=== PATIENT | male | born 1960 | race Caucasian/White ===

== ENCOUNTER 2018-01-29 17:11 | Emergency (ER) | payer OTHER ==
[2018-01-29] MEDS ORDERED: Ondansetron HCl/PF 4 MG/2 ML Vial ONE (18:04)
[2018-01-29] MEDS ORDERED: Morphine 4 MG/ML VIAL ONE (18:04)
[2018-01-29 18:23] LABS: Bilirubin Negative (Negative); Blood, Urine Small (Negative); Clarity Hazy (Clear); Glucose, Urine (Dipstick) Negative (Negative); Leukocyte Negative (Negative); Nitrite Negative (Negative); Protein, Urine (Dipstick) 100 mg/dL (Neg-Trace); Specific Gravity, Urine 1.025 (1.005-1.030); Urobilinogen 0.2 mg/dL (0.2-1.0)
[2018-01-29 18:24] LABS: #Basophils 0.1 thou/uL (0.0-0.2); #Eosinphils 0.3 thou/uL (0.0-0.7); #Monocytes 0.7 thou/uL (0.11-0.59); #Neutrophils 4.9 thou/uL (1.40-6.50); %Basophils 1.8 % (0.0-1.0); %Eosinophils 3.2 % (0.0-10.0); %Lymphocytes 25.6 % (21.0-51.0); %Monocytes 8.5 % (0.0-10.0); Hemoglobin 16.3 g/dL (14.0-18.0); Mean Corpuscular Hemoglobin 32.6 pg (27.0-31.0); Mean Corpuscular Volume 95.7 fL (78.0-98.0); Mean Platelet Volume 8.5 fL (7.4-10.4); Platelet Count 146 thou/uL (130-400); RBC Distribution Width 12.7 % (11.5-14.5); Red Blood Cell (RBC) Count 4.99 mill/uL (4.70-6.10)
[2018-01-29 18:31] LABS: Bacteria/HPF 1+ HPF (None Seen); Squamous Epithelial 0-3 HPF (0-3); WBC/HPF None Seen HPF (0-3)
[2018-01-29 18:39] LABS: ALT (SGPT) 68 U/L (8-55); AST (SGOT) 80 U/L (5-34); Albumin 4.4 g/dL (3.5-5.0); Alkaline Phosphatase 86 U/L (40-150); Anion Gap 14 mmol/L (10-20); BUN (Urea Nitrogen) 23 mg/dL (8.4-25.7); Bilirubin, Total 0.7 mg/dL (0.2-1.2); Calc. Creatinine Clearance 0 mL/min (70-130); Calcium 11.3 mg/dL (7.8-10.44); Carbon Dioxide 19 mmol/L (22-29); Chloride 107 mmol/L (98-107); Estimated GFR-MDRD 58; Glucose 88 mg/dL (70-105); Lipase 142 U/L (8-78); Potassium 3.3 mmol/L (3.5-5.1); Protein, Total 8.4 g/dL (6.0-8.3); Sodium 137 mmol/L (136-145)
[2018-01-29] MEDS ORDERED: Lorazepam 2 MG/ML VIAL ONE (18:39)
[2018-01-29 18:43] LABS: CKMB 1.3 ng/mL (0-6.6); Troponin I Less than 0.010 ng/mL (< 0.028)
[2018-01-29] MEDS ORDERED: Famotidine/PF 20 mg/2ml Vial ONE (20:41)
--- NOTE | 2018-01-29 21:08 | CT ---
ABDOMEN CT WITH CONTRAST PELVIC CT WITH CONTRAST 01/29/18 HISTORY: Right upper quadrant pain . COMPARISON: None. TECHNIQUE: Abdomen and pelvic CT are performed with IV and oral contrast. Coronal reformatted images are submitt ed for interpretation. FINDINGS: ABDOMEN CT: Lung bases are clear. Normal heart size. No pericardial fluid. The descending thoracic aorta and abdo cheryl aorta have a normal caliber. No periaortic fat stranding. Gallbladder is unremarkable. Patent p ortal vein is patent. Hypoattenuation of the liver due to hepatic steatosis. Spleen, pancreas, and adrenal glands are unre markable. No gastrohepatic, retrocrural or periportal lymphadenopathy. No mesenteric mass, lymphadenopathy, free air or free fluid. Hypodensities in the left and right kidney are too small to characterize. There may be a septated cys t in the left kidney measuring 1.5 cm in craniocaudal dimension. Questionable enhancing septation in the upper pole of the right kidney measuring 1 cm in craniocaudal dimension. Additional hypodensities are noted. Bilaterally, no obstructive uropathy. Gastric mucosa, duodenum and multiple normal caliber small bowel loops. Ileocecal junction is normal. Normal caliber appendix. Scattered fecal material in a nondistended, nondilated colon. PELVIC CT: No mass, lymphadenopathy, free air or free fluid. No lytic or blastic lesions in the osseous structures. IMPRESSION: 1. Hypodense lesions in the left and right kidney as detailed above. Nonemergent abdomen MRI can be performed for better characterization. 2. Hepatic steatosis. 3. No evidence of acute abnormality in the abdomen or pelvis. 4. Normal caliber appendix. POS: [facility]
[2018-01-29] MEDS ORDERED: Potassium Chloride 20 MEQ TAB ONE (21:54)
[2018-01-29] MEDS ORDERED: Magnesium Citrate 300 ML BOT ONE (21:54)
== END 2018-01-29 22:01 | disposition home or self-care (01) ==
LOC: SCSER 17:11
DX: K76.0 Fatty (change of) liver, not elsewhere classified (principal); N28.1 Cyst of kidney, acquired; I10 Essential (primary) hypertension; E87.6 Hypokalemia; R74.0 Nonspecific elevation of levels of transaminase and lactic acid dehydrogenase [LDH]; K21.9 Gastro-esophageal reflux disease without esophagitis; E78.5 Hyperlipidemia, unspecified; F17.210 Nicotine dependence, cigarettes, uncomplicated; Z71.6 Tobacco abuse counseling
CPT/HCPCS: 74177; 76705; 80053; 81003; 81015; 82553; 83605; 83690; 84484; 85025; 93005; 96361; 96374; 96375; 99406; J2060; J2270; J2405; S0028

== ENCOUNTER 2018-03-05 09:32 | Outpatient (CLI) | payer OTHER ==
--- NOTE | 2018-03-05 12:17 | MRI ---
MRI RIGHT SHOULDER WITHOUT CONTRAST: HISTORY: Shoulder pain. M75.101, tear of the rotator cuff. COMPARISON: None. FINDINGS: BICEPS TENDON: There is interstitial split tearing of the extraarticular and intraarticular biceps tendon. There is perching of the biceps tendon upon the lesser tuberosity with a subcortical cyst. There is a tear o f the superior glenohumeral ligament of the biceps darling, as well as an interstitial split tear of t he craniad fibers of the subscapularis. There is some subluxation of the biceps tendon to the torn s ubscapularis tendon fibers. LABRUM: There is a tear of the superior labrum extending to the posterior superior labrum. ROTATOR CUFF: There is a full-thickness leading edge tear of the anterior 1.5 cm supraspinatus tendon from the foot print with a 6 mm gap. There is moderate tendinosis of the remainder of the tendon. There are inter stitial delamination-type tears of the infraspinatus tendon. BONES: Type I acromion. No acute fracture. Mild degenerative change of the acromioclavicular joint as expe cted for age. MUSCLES: Muscle bulk is normal. SOFT TISSUES: Moderate subacromial subdeltoid bursal effusion. IMPRESSION: 1. Extensive interstitial edema and delamination-type tear of the extraarticular and interarticular biceps tendon. There is perching of the biceps tendon upon the lesser tuberosity as well as displace ment through a tear of the craniad fibers of the subscapularis. There is a tear of the superior melissa ohumeral ligament portion of the biceps darling. 2. Tear of the superior labrum extending to the posterior superior labrum. 3. Full-thickness, near full-width supraspinatus tendon tear extending from the free edge for a salazar sverse width of 1.5 cm. This is from the footprint with a 6 mm gap. Torn fibers are moderately tend inotic. 4. Subcortical cysts of the lesser tuberosity of the humerus from chronic subluxation of the biceps tendon. POS: [facility]
== END 2018-03-05 09:33 | disposition home or self-care (01) ==
LOC: TBSIIMAG 09:32
PROVIDERS: ATTEND Orthopaedic Surgery
DX: M75.121 Complete rotator cuff tear or rupture of right shoulder, not specified as traumatic (principal); R60.0 Localized edema; S43.401A Unspecified sprain of right shoulder joint, initial encounter; M25.811 Other specified joint disorders, right shoulder; M24.411 Recurrent dislocation, right shoulder

== ENCOUNTER 2018-03-10 15:11 | Outpatient (CLI) | payer OTHER ==
[2018-03-10 15:58] LABS: #Basophils 0.1 thou/uL (0.0-0.2); #Eosinphils 0.2 thou/uL (0.0-0.7); #Lymphocytes 1.6 thou/uL (1.20-3.40); #Monocytes 0.6 thou/uL (0.11-0.59); #Neutrophils 4.9 thou/uL (1.40-6.50); %Basophils 0.8 % (0.0-1.0); %Eosinophils 2.8 % (0.0-10.0); %Lymphocytes 21.4 % (21.0-51.0); %Monocytes 8.6 % (0.0-10.0); %Neutrophils 66.3 % (42.0-75.0); Hemoglobin 15.3 g/dL (14.0-18.0); Mean Corpuscular HGB CONC 33.6 g/dL (32.0-36.0); Mean Corpuscular Hemoglobin 32.7 pg (27.0-31.0); Mean Corpuscular Volume 97.5 fL (78.0-98.0); Mean Platelet Volume 7.8 fL (7.4-10.4); Platelet Count 237 thou/uL (130-400); RBC Distribution Width 12.8 % (11.5-14.5); Red Blood Cell (RBC) Count 4.69 mill/uL (4.70-6.10); White Blood Cell (WBC) Count 7.3 thou/uL (4.8-10.8)
[2018-03-10 16:18] LABS: Anion Gap 12 mmol/L (10-20); BUN (Urea Nitrogen) 17 mg/dL (8.4-25.7); Calc. Creatinine Clearance 0 mL/min (70-130); Calcium 9.9 mg/dL (7.8-10.44); Carbon Dioxide 26 mmol/L (22-29); Chloride 103 mmol/L (98-107); Estimated GFR-MDRD 59; Glucose 97 mg/dL (70-105); Potassium 3.7 mmol/L (3.5-5.1); Sodium 137 mmol/L (136-145)
--- NOTE | 2018-03-14 10:25 | EKG ---
Test Reason : Blood Pressure : / mmHG Vent. Rate : 080 BPM Atrial Rate : 080 BPM P-R Int : 124 ms QRS Dur : 082 ms QT Int : 366 ms P-R-T Axes : 049 082 050 degrees QTc Int : 422 ms Normal sinus rhythm Nonspecific ST abnormality Abnormal ECG When compared with ECG of 29-JAN-2018 17:54, Questionable change in QRS axis Confirmed by DR. Ivonne ARIAS ([id number]) on 03/14/2018 10:25:39 AM Referred By: LEONORA Confirmed By:DR. Ivonne ARIAS
== END 2018-03-10 15:12 | disposition home or self-care (01) ==
LOC: LABBT 15:11
PROVIDERS: ATTEND Orthopaedic Surgery
DX: Z01.818 Encounter for other preprocedural examination (principal); M75.101 Unspecified rotator cuff tear or rupture of right shoulder, not specified as traumatic
CPT/HCPCS: 80048; 85025; 93005; 93010

== ENCOUNTER 2018-03-13 09:22 | Day surgery (SDC) | payer OTHER ==
[2018-03-10 15:22] VITALS: BMI 26.6
[2018-03-13] MEDS ORDERED: CEFAZOLIN 2 GM/50 ML BAG ONE (11:47)
[2018-03-13] MEDS ORDERED: Midazolam HCl 2 mg/2 ml Vial ONE (11:51)
[2018-03-13] MEDS ORDERED: Fentanyl 100 MCG/2 ML VIAL ONE ×2 (11:51→12:49)
[2018-03-13] MEDS ORDERED: Ropivacaine 0.5% HCl/PF (150 MG/30 ML VIAL) ONE (12:29)
[2018-03-13] MEDS ORDERED: Ropivacaine 0.2% HCl/PF (40 MG/20 ML VIAL) ONE (12:29)
[2018-03-13] MEDS ORDERED: Promethazine HCl 25 MG/ML VIAL IM PRN (12:37)
[2018-03-13] MEDS ORDERED: Zolpidem Tartrate 5 MG TAB PO PRN (12:37)
[2018-03-13] MEDS ORDERED: Ropivacaine 0.2% 550 ML 550 ML NERVE BLCK SCH (12:37)
[2018-03-13] MEDS ORDERED: HYDROcodone/Acetaminophen 10/325 mg Tablet PO PRN ×2 (12:37)
[2018-03-13] MEDS ORDERED: traMADol HCl 50 MG TAB PO PRN ×2 (12:37)
[2018-03-13] MEDS ORDERED: Fentanyl 100 MCG/2 ML VIAL IV PRN (12:37)
[2018-03-13] MEDS ORDERED: Ondansetron PF 4 MG/2 ML Vial IVP PRN (12:37)
[2018-03-13] MEDS ORDERED: PROPOFOL 200 MG/20 ML VIAL ONE (13:34)
[2018-03-13] MEDS ORDERED: PHENYLEPHRINE-NS 100 MCG/ML 10 ML SYRINGE ONE (13:34)
[2018-03-13] MEDS ORDERED: Ondansetron PF 4 MG/2 ML Vial ONE (13:34)
[2018-03-13] MEDS ORDERED: Glycopyrrolate 0.2 MG/ML 5 ML SYRINGE ONE (13:34)
[2018-03-13] MEDS ORDERED: Dexamethasone 20 MG/5 ML VIAL ONE (13:34)
--- NOTE | 2018-03-13 15:09 | OP ---
DATE OF PROCEDURE: 03/13/2018 PREOPERATIVE DIAGNOSES: Rotator cuff tear, biceps tendonitis, right shoulder. POSTOPERATIVE DIAGNOSES: Intact pristine looking biceps tendon, but full-thickness rotator cuff tear . PROCEDURES: Arthroscopic subacromial decompression and rotator cuff repair. SURGEON: Chan Rader M.D. ANESTHESIA: General. BLOOD LOSS: Minimal. SPECIMEN: None. DRAINS: None. COMPLICATIONS: None. PROCEDURE IN DETAIL: The patient was taken to the operating room where general anesthesia was induce d. The patient was placed in the left lateral decubitus position. Right arm was placed in traction, prepped and draped. Scope was placed in the glenohumeral joint. Glenohumeral joint showed a very h ealthy appearing biceps tendon, some labral fraying consistent with age, full thickness rotator cuff and no significant osteoarthritis. Scope was placed in the subacromial bursa. There was a great brendon l of bursitis. I performed a subacromial decompression and bursectomy. CA ligament was taken down. I then freshened up the greater tuberosity and freshened up the rotator cuff tear with a shaver. I placed a single TwinFix suture anchor through the greater tuberosity through the freshened bone. Sut ures were passed through the rotator cuff and tied with a good watertight repair and then reinforced with a double row using self-punching SwiveLock. Shoulder was then drained. Portals were closed wit h nylon suture. Sterile dressings applied. There were no complications.
== END 2018-03-13 17:00 | disposition home or self-care (01) ==
LOC: SDC 09:22
PROVIDERS: ATTEND Orthopaedic Surgery
PROC: 0RNJ4ZZ Release Right Shoulder Joint, Percutaneous Endoscopic Approach (ICD-10-PCS; principal; 2018-03-13)
PROC: 0LQ14ZZ Repair Right Shoulder Tendon, Percutaneous Endoscopic Approach (ICD-10-PCS; principal; 2018-03-13)
DX: M75.121 Complete rotator cuff tear or rupture of right shoulder, not specified as traumatic (principal); M75.21 Bicipital tendinitis, right shoulder; I10 Essential (primary) hypertension; E78.5 Hyperlipidemia, unspecified; Z79.899 Other long term (current) drug therapy
CPT/HCPCS: A4306; C1713; G8984-GP-CK; G8985-GP-CK; G8986-GP-CK; J1100; J2250; J2405; J2704; J2795; J3010

== ENCOUNTER 2019-04-14 09:32 | Outpatient (CLI) | payer OTHER ==
--- NOTE | 2019-04-14 10:22 | RAD ---
XR Lumbar Spine 2 Or 3 View HISTORY: Low back pain, right-sided sciatica, osteoarthritis FINDINGS: Degenerative changes are present. No fracture, subluxation or bony destruction is seen. IMPRESSION: lumbar spondylosis
== END 2019-04-14 09:33 | disposition home or self-care (01) ==
LOC: BICRAD 09:32
PROVIDERS: ATTEND Family Medicine
DX: M47.817 Spondylosis without myelopathy or radiculopathy, lumbosacral region (principal); N17.9 Acute kidney failure, unspecified; A48.3 Toxic shock syndrome; M32.14 Glomerular disease in systemic lupus erythematosus; M35.00 Sjogren syndrome, unspecified; D64.9 Anemia, unspecified; N20.0 Calculus of kidney; A02.1 Salmonella sepsis; N28.1 Cyst of kidney, acquired; I11.9 Hypertensive heart disease without heart failure; E78.5 Hyperlipidemia, unspecified; K21.9 Gastro-esophageal reflux disease without esophagitis; G62.9 Polyneuropathy, unspecified; I25.10 Atherosclerotic heart disease of native coronary artery without angina pectoris; M47.816 Spondylosis without myelopathy or radiculopathy, lumbar region
CPT/HCPCS: 72100

== ENCOUNTER 2019-05-11 15:42 | Outpatient (CLI) | payer OTHER ==
--- NOTE | 2019-05-11 16:33 | MRI ---
MRI lumbar spine noncontrast: HISTORY: Right-sided low back pain. Left-sided sciatica. Pain radiates down the right leg and hip x2.5 months. COMPARISON: None. FINDINGS: Appropriate T1 marrow signal intensity of the lumbar vertebra. Mild heterogeneity due to senescent ch italo. Lumbar spine vertebral body height is maintained. No fracture. No significant STIR hyperintensity to suggest vertebral body edema or ligamentous injury. Appropriate signal intensity visualized paraspinal muscles. T2 hyperintensities in the left or right renal cortex, compatible with cortical cysts. Otherwise, unremarkable signal intensity visualized solid organs Conus medullaris terminates at the T12-L1 disc space T12-L1:Adequate disc hydration. No significant central canal stenosis or significant neural foraminal narrowing L1-L2:Adequate disc hydration. No significant canal stenosis or significant neural foraminal narrowin g L2-L3:Minimal disc desiccation without significant loss of disc space height. Broad-based disc bulge minimally abuts the thecal sac. No significant central canal stenosis. Bilaterally the neural foramina are patent L3-L4:Minimal desiccation without significant loss of disc space height. Broad-based disc bulge minim ally contacts the ventral thecal sac. No significant central canal stenosis. Bilaterally, neural foramina pain L4-L5:Adequate disc hydration. No significant posterior disc of body. No significant central canal st enosis. Right neural foramen is patent. Minimal left foraminal narrowing. L5-S1:Mild loss of disc space height. Broad-based disc bulge does not cause any significant mass effe ct upon the thecal sac. Narrowing of the thecal sac is noted, due to epidural lipomatosis. Mild to moderate right neural foraminal narrowing and moderate left foraminal narrowing predominantly due to facet hypertrophy. IMPRESSION: 1. Narrowing of the thecal sac at L5-S1 essentially due to epidural lipomatosis. 2. Mild to moderate right neural foraminal narrowing and moderate left foraminal narrowing at L5-S1.. Transcribed Date/Time: 05/11/2019 4:52 PM
== END 2019-05-11 15:43 | disposition home or self-care (01) ==
LOC: SCSMRI 15:42
PROVIDERS: ATTEND Family Medicine
DX: M54.42 Lumbago with sciatica, left side (principal); M48.07 Spinal stenosis, lumbosacral region; E88.2 Lipomatosis, not elsewhere classified
CPT/HCPCS: 72148

== ENCOUNTER 2019-09-08 14:42 | Outpatient (CLI) | payer OTHER ==
--- NOTE | 2019-08-18 15:47 | MRI ---
MRI cervical spine noncontrast HISTORY: Neck pain. Radiculopathy. Spinal stenosis. FINDINGS: Vertebral body heights and alignment are maintained. Bone marrow signal is within normal li mits. There is desiccation of all of the intervertebral discs. C2-3: Mild posterior osteophyte/disc complex, greater on the right. Severe stenosis of the right neur al foramen. Central canal and left neural foramen are patent. C3-4: Mild posterior osteophyte/disc complex. Mild stenosis of the left neural foramen. Central canal and right neural foramen are patent. C4-5: Disc space narrowing. Posterior osteophyte/disc complex and circumferential degenerative change s. Moderate stenosis of the central canal. Severe bilateral foraminal stenoses. No abnormal signal within the spinal cord. C5-6: Disc space narrowing. Prominent posterior osteophyte/disc complex. Circumferential degenerative changes. Severe stenosis of the central canal. No abnormal signal within the spinal cord. Moderate right and severe left foraminal stenoses. C6-7: Disc space narrowing. Posterior osteophyte/disc complex and circumferential degenerative change s. Moderate stenosis of the central canal. Severe bilateral foraminal stenoses. C7-T1: Mild osteophytosis. Central canal and neural foramina are patent. IMPRESSION : Prominent multilevel degenerative changes throughout the cervical spine. Central canal stenosis most severe at the C5-6 level. Multilevel severe bilateral foraminal stenoses.
--- NOTE | 2019-08-18 16:03 | MRI ---
MRI OF LUMBAR SPINE 08/18/19 PROVIDED CLINICAL HISTORY: Lumbar radiculopathy. FINDINGS: Comparison 05/11/19. Five lumbar vertebral bodies are again assumed. Lumbar alignment appears unchanged. Vertebral body he ights are maintained. The conus medullaris is normal in signal and terminates at an appropriate level . Bilateral T2 renal hyperintensities are redemonstrated, subcentimeter and statistically reflecting cysts. At L1-2, there is no significant central canal or foraminal narrowing apparent. At L2-3, there is a broad based disc bulge without significant central canal or foraminal narrowing a pparent. At L3-4, there is a broad based disc bulge without significant central canal or foraminal narrowing a pparent. At L4-5, there is a broad based disc bulge and mild bilateral facet arthritis without significant preet tral canal or foraminal narrowing apparent. At L5-S1, there is a broad based disc bulge and bilateral facet arthritis in addition to conspicuity of the epidural fat. There is circumferential attenuation of the thecal sac on the basis of epidural lipomatosis, without further attenuation due to the disc bulge. There is moderate bilateral foraminal narrowing, similar to prior. IMPRESSION: Significant interval change with respect to the prior examination is no apparent. POS: [facility]
--- NOTE | 2019-09-08 16:30 | MRI ---
MRI thoracic spine noncontrast: Attention patel in billing: The patient should not be charged for this examination. DATE: 09/08/2019 HISTORY: 59-year-old male with mid back pain and lower extremity weakness. For 08/18/2019, MRI of the cervical spine and thoracic spine were ordered. At [facility], and MRI of the cervical spine and lumbar spine was performed. The patient should not be charged either a technical fee or professional fee for this thoracic spine MRI. COMPARISON: None FINDINGS: Vertebral body heights are maintained. No bone marrow edema. Somewhat heterogeneous nonspecific patch y marrow signal, probably senescent marrow changes. Multilevel mild-moderate degenerative disc disease throughout almost all levels. Thoracic spinal cord is normal in size and signal. No severe ne ural foraminal stenosis at any level. No major pathology of perivertebral spaces. Conus medullaris terminates at approximately L1. No high-grade central bony spinal canal stenosis at any level. Lead Neurodiagnostic Technologist ior epidural fat pad throughout almost all levels, thicker at some levels than others. This results in mild thecal sac stenosis at some levels. T3-4: Shallow central and bilateral paracentral broad-based disc herniation or disc-osteophyte comple x indents the ventral aspect of the thecal sac and abuts the ventral surface of the spinal cord, with minimal indentation. Tiny central disc-osteophyte complex protrusions at T4-5 and T6-7, without cord indentation. T7-8: Small focal central disc protrusion or focal disc-osteophyte complex slightly indents the ventr al surface of the spinal cord. T8-9: Central and bilateral paracentral small disc protrusion or disc-osteophyte complex slightly min imally indents the ventral surface of the spinal cord. Tiny central disc protrusion or disc-osteophyte complex at T9-10 and T10-11 without cord contact. IMPRESSION: 1. Thoracic spondylosis consisting of multilevel degenerative disc disease, including multilevel smal l disc herniations and/or disc-osteophyte complexes encroaching upon the anterior aspect of the spinal canal, some with cord contact and mild cortical indentations. 2. No high-grade central spinal canal stenosis or high-grade neural foraminal stenosis, at any level in the thoracic spine.
== END 2019-09-08 14:43 | disposition home or self-care (01) ==
LOC: SCSMRI 14:42
PROVIDERS: ATTEND Surgery
DX: M54.16 Radiculopathy, lumbar region (principal); M54.5 Low back pain; R29.898 Other symptoms and signs involving the musculoskeletal system; M47.812 Spondylosis without myelopathy or radiculopathy, cervical region; M48.02 Spinal stenosis, cervical region
CPT/HCPCS: 72141; 72146; 72148

== ENCOUNTER 2019-10-08 06:33 | Outpatient (CLI) | payer OTHER ==
[2019-10-08 11:23] LABS: Hemoglobin 14.3 g/dL (14.0-18.0); Mean Corpuscular HGB CONC 34.2 g/dL (32.0-36.0); Mean Corpuscular Hemoglobin 33.2 pg (27.0-31.0); Mean Corpuscular Volume 97.1 fL (78.0-98.0); Mean Platelet Volume 8.8 fL (7.4-10.4); Platelet Count 200 thou/uL (130-400); RBC Distribution Width 12.5 % (11.5-14.5); Red Blood Cell (RBC) Count 4.32 mill/uL (4.70-6.10); White Blood Cell (WBC) Count 8.7 thou/uL (4.8-10.8)
[2019-10-08 11:48] LABS: Anion Gap 14 mmol/L (10-20); BUN (Urea Nitrogen) 14 mg/dL (8.4-25.7); Calc. Creatinine Clearance 0 mL/min (70-130); Calcium 9.9 mg/dL (7.8-10.44); Carbon Dioxide 23 mmol/L (22-29); Chloride 106 mmol/L (98-107); Estimated GFR-MDRD 33; Glucose 95 mg/dL (70-105); Potassium 3.2 mmol/L (3.5-5.1); Sodium 140 mmol/L (136-145)
[2019-10-08 12:24] LABS: INR-International Normal Ratio 0.9; PTT 27.2 sec (22.9-36.1); Prothrombin Time 12.3 sec (12.0-14.7)
[2019-10-09 12:15] LABS: SARS-CoV-2 MS2 Positive; SARS-CoV-2 N Gene Negative; SARS-CoV-2 S Gene Negative; SARS-CoV-2 orf1ab Negative
--- NOTE | 2019-10-11 11:45 | EKG ---
Test Reason : Blood Pressure : / mmHG Vent. Rate : 068 BPM Atrial Rate : 068 BPM P-R Int : 138 ms QRS Dur : 098 ms QT Int : 384 ms P-R-T Axes : 033 046 039 degrees QTc Int : 408 ms Normal sinus rhythm Nonspecific ST abnormality Abnormal ECG Confirmed by DIAZ FRANKLIN ([id number]) on 10/11/2019 11:45:15 AM Referred By: PARADISE Confirmed By:DIAZ FRANKLIN
== END 2019-10-08 06:34 | disposition home or self-care (01) ==
LOC: LABBT 06:33
PROVIDERS: ATTEND Surgery
DX: Z01.818 Encounter for other preprocedural examination (principal); Z11.59 Encounter for screening for other viral diseases; M48.061 Spinal stenosis, lumbar region without neurogenic claudication; M54.16 Radiculopathy, lumbar region; D17.79 Benign lipomatous neoplasm of other sites
CPT/HCPCS: 80048; 85027; 85610; 85730; 87635; 93005; 93010; U0003

== ENCOUNTER 2019-10-12 05:55 | Day surgery (SDC) | payer OTHER ==
[2019-10-07 11:33] VITALS: BMI 24.1
[2019-10-12] MEDS ORDERED: Thrombin 5000 UNITS/5 ML VIAL ONE (06:26)
[2019-10-12] MEDS ORDERED: Fentanyl 250 MCG/5 ML VIAL ONE (07:26)
[2019-10-12] MEDS ORDERED: SUGAMMADEX SODIUM 200 MG/2 ML VIAL ONE (09:11)
[2019-10-12] MEDS ORDERED: Acetaminophen/Codeine 30-300mg Tablet PO PRN (09:43)
[2019-10-12] MEDS ORDERED: HYDROcodone/Acetaminophen 7.5/325 mg Tablet PO PRN (09:43)
[2019-10-12] MEDS ORDERED: Fleet Enema 133 ML BOT PR PRN (09:43)
[2019-10-12] MEDS ORDERED: Milk Of Magnesia 30 ML UDCUP PO PRN (09:43)
[2019-10-12] MEDS ORDERED: Mag-Al 1200 mg/1200 mg/30 ML UDCUP PO PRN (09:43)
[2019-10-12] MEDS ORDERED: Ondansetron PF 4 MG/2 ML Vial IVP PRN (09:43)
[2019-10-12] MEDS ORDERED: Acetaminophen 325 MG TAB PO PRN (09:43)
[2019-10-12] MEDS ORDERED: Bisacodyl 10 MG SUPP PR PRN (09:43)
[2019-10-12] MEDS ORDERED: tiZANidine HCl 4 MG TAB PO PRN (09:43)
[2019-10-12] MEDS ORDERED: traMADol HCl 50 MG TAB PO PRN (09:46)
[2019-10-12] MEDS ORDERED: HYDROmorphone 2 MG/ML VIAL SLOW IVP PRN (09:47)
[2019-10-12] MEDS ORDERED: Morphine Sulfate 2 MG/ML SYRINGE SLOW IVP PRN (09:47)
[2019-10-12] MEDS ORDERED: PACU-Morphine 4MG/ML VIAL SLOW IVP PRN (09:47)
[2019-10-12] MEDS ORDERED: Ondansetron HCl/PF 4 MG/2 ML Vial IVP PRN (09:47)
[2019-10-12] MEDS ORDERED: Promethazine HCl 25 MG/ML VIAL SLOW IVP PRN (09:47)
[2019-10-12] MEDS ORDERED: Promethazine HCl 25 MG/ML VIAL IM PRN (09:47)
[2019-10-12] MEDS ORDERED: Fentanyl 100 MCG/2 ML VIAL ONE ×3 (10:02→10:46)
[2019-10-12] MEDS ORDERED: Morphine 2 MG/ML SYRINGE ONE ×2 (11:25→12:36)
[2019-10-12] MEDS ORDERED: PROPOFOL 200 MG/20 ML VIAL ONE (11:54)
[2019-10-12] MEDS ORDERED: Rocuronium Bromide 10 MG/ML (10ML VIAL) ONE (11:54)
[2019-10-12] MEDS ORDERED: PHENYLEPHRINE-NS 100 MCG/ML 10 ML SYRINGE ONE (11:54)
[2019-10-12] MEDS ORDERED: Dexamethasone 20 MG/5 ML VIAL ONE (11:54)
[2019-10-12] MEDS ORDERED: Ondansetron PF 4 MG/2 ML Vial ONE (11:54)
[2019-10-12] MEDS ORDERED: Lidocaine 1% PF 5 ML VIAL ONE (11:54)
[2019-10-12] MEDS ORDERED: Metoclopramide HCl 10 MG/2 ML VIAL ONE (11:54)
[2019-10-12] MEDS: Morphine 2 MG/ML SYRINGE SLOW IVP PRN ×2 (15:40→19:51)
[2019-10-12] MEDS: Sodium Chloride 0.9% 1,000 ML IV SCH (15:42)
[2019-10-12] MEDS: CEFAZOLIN 2 GM in Premix Bag 1 BAG IVPB SCH (16:48)
[2019-10-12] MEDS ORDERED: Gabapentin 300 MG CAP PO SCH (21:00)
[2019-10-12] MEDS ORDERED: Non-Formulary Item 1 EACH (Rosuvastatin Calcium [Crestor] 40 MG) PO SCH (21:00)
[2019-10-12] MEDS ORDERED: Rosuvastatin 20 MG TAB PO SCH (21:00)
[2019-10-12] MEDS: Gabapentin 300 MG CAP PO SCH (21:36)
[2019-10-12] MEDS: Metoprolol Tartrate 100 MG TAB PO SCH (21:37)
[2019-10-13] MEDS: CEFAZOLIN 2 GM in Premix Bag 1 BAG IVPB SCH (00:12)
[2019-10-13] MEDS: Morphine 2 MG/ML SYRINGE SLOW IVP PRN ×2 (00:15→09:10)
[2019-10-13] MEDS: Sodium Chloride 0.9% 1,000 ML IV SCH (06:43)
[2019-10-13 08:11] VITALS: BP 115/70; TEMP 98.5
[2019-10-13] MEDS ORDERED: Famotidine 20 MG TAB PO SCH (09:00)
[2019-10-13] MEDS ORDERED: Potassium Chloride 20 MEQ TAB PO SCH (09:00)
[2019-10-13] MEDS ORDERED: Non-Formulary Item 1 EACH (Potassium Chloride [Potassium Chloride] 20 MEQ) PO SCH (09:00)
[2019-10-13] MEDS: Gabapentin 300 MG CAP PO SCH (09:12)
--- NOTE | 2019-10-13 09:40 | PRG ---
DATE OF SERVICE: Mr. Rodriguez is postop day 1 from lumbar laminectomy and epidural lipomatosis removal. He has right leg pain. He is mobilizing, plan for dismissal. He is neurologically intact. Job ID: [id number]
--- NOTE | 2019-10-13 10:18 | OP ---
DATE OF PROCEDURE: 10/12/2019 LOAN ASSISTANT: Tanna Daugherty PA-C PREPROCEDURE DIAGNOSIS: Lumbar stenosis with lumbar epidural lipomatosis. POSTPROCEDURE DIAGNOSIS: Lumbar stenosis with lumbar epidural lipomatosis. PROCEDURE PERFORMED: L4-L5, L5-S1 laminectomies, partial facetectomies, and foraminotomies. DESCRIPTION OF PROCEDURE: After informed consent was obtained from the patient, the patient was brought to the OR. Proper patient, pause, and identification were carried out. He was placed under excellent general endotracheal anesthesia and positioned prone on the OR table. All appropriate points were padded. We identified the L4, L5, and S1 dorsal spines and lamina. A linear ubaldo was made over this region. This area sterilely cleansed, prepared, and draped. Proper patient, pause, and identification were carried out. We then opened the L4 to S1 wound with subperiosteal dissection. The L4, L5, and S1 dorsal spines and lamina were exposed. Localization film confirmed our area of interest. We then performed L4-S1 laminectomy, partial facetectomy, and foraminotomy, removal of the epidural lipomatosis. There was no spinal fluid leak. We had excellent decompression of common dural tube and nerve roots. Copious irrigation occurred throughout as did maximizing hemostasis. The wound was then closed in anatomic layers following the sprinkling of vancomycin powder. Job ID: [id number]
[2019-10-13] MEDS: Metoprolol Tartrate 100 MG TAB PO SCH (10:19)
== END 2019-10-13 11:14 | disposition home or self-care (01) ==
LOC: SDC 05:55 → 3SE 09:47 → SDC 10-13 11:14
PROVIDERS: ATTEND Surgery
PROC: 01NB0ZZ Release Lumbar Nerve, Open Approach (ICD-10-PCS; principal; 2019-10-12)
DX: M48.062 Spinal stenosis, lumbar region with neurogenic claudication (principal); E88.2 Lipomatosis, not elsewhere classified; M54.16 Radiculopathy, lumbar region; M48.02 Spinal stenosis, cervical region; F17.200 Nicotine dependence, unspecified, uncomplicated; Z79.899 Other long term (current) drug therapy
CPT/HCPCS: 76000; J0690; J1100; J2001; J2270; J2405; J2704; J2765; J3010; J3370; J3490